=== PATIENT | male | born 1990 | race Caucasian/White ===

== ENCOUNTER 2019-06-12 21:35 | Emergency (ER) | payer OTHER ==
[2019-06-12 21:41] VITALS: TEMP 97.3
[2019-06-12] MEDS ORDERED: LIDOCAINE 1% INJ 10MG/ML (20 ML MDV) SQ ONE (22:00)
[2019-06-12] MEDS ORDERED: DIPH,PERTUS(ACELL)TETVAC-LF 0.5 ML VIAL IM ONE (22:01)
[2019-06-12] MEDS ORDERED: CEPHALEXIN 500 MG CAP PO STA (22:01)
--- NOTE | 2019-06-12 22:33 | XR ---
EXAMINATION TYPE: XR hand limited LT DATE OF EXAM: 06/12/2019 COMPARISON: NONE HISTORY: Pain TECHNIQUE: 2 views FINDINGS: I see no acute fracture nor dislocation. Joint spaces are normal. Metacarpals are intact. T here is 1 mm metallic density at the soft tissues of the base of the index finger on the lateral aspe ct. IMPRESSION: Small metallic foreign body. No fracture seen.
--- NOTE | 2019-06-12 23:24 | ED ---
Wound/Laceration HPI - General Chief Complaint: Wound/Laceration Stated Complaint: L Hand Lac Time Seen by Provider: 06/12/19 21:47 Source: patient Mode of arrival: ambulatory Limitations: no limitations - History of Present Illness Initial Comments: Patient is a 28-year-old male presenting to emergency Department with complaints of a laceration to his left hand just happened prior to arrival. Patient states he was using a cutting wheel when it slipped hitting him on the dorsal aspect of his left hand. Patient denies being on blood thinners. Bleeding is controlled at this time with a bandage. Patient states he is not sure of his last tetanus but believes is been more than 5 years. He has no other complaints at this time. Upon arrival to ER, his vital signs are stable. - Related Data Previous Rx's Medication Instructions Recorded Cephalexin [Keflex] 500 mg PO BID 3 Days #6 cap 06/12/19 Allergies Allergy/AdvReac Type Severity Reaction Status Date / Time No Known Allergies Allergy Verified 06/12/19 21:41 Review of Systems ROS Statement: Those systems with pertinent positive or pertinent negative responses have been documented in the HPI. ROS Other: All systems not noted in ROS Statement are negative. Past Medical History Past Medical History: No Reported History History of Any Multi-Drug Resistant Organisms: None Reported Past Surgical History: No Surgical Hx Reported Past Psychological History: Depression Smoking Status: Never smoker Past Alcohol Use History: Occasional Past Drug Use History: None Reported General Exam - General Exam Comments Initial Comments: GENERAL: Well-appearing, well-nourished and in no acute distress. HEAD: Atraumatic, normocephalic. EYES: Pupils equal round and reactive to light, extraocular movements intact, sclera anicteric, conjunctiva are normal. ENT: Moist mucous membranes. NECK: Normal range of motion, supple without lymphadenopathy or JVD. LUNGS: Breath sounds clear to auscultation bilaterally and equal. No wheezes rales or rhonchi. HEART: Regular rate and rhythm without murmurs, rubs or gallops. ABDOMEN: Soft, nontender, normoactive bowel sounds. No guarding, no rebound. No masses appreciated. EXTREMITIES: Patient has full range of motion of his left hand and wrist. He has full extension of all fingers as well as full flexion. There is some mild swelling to the area. No foreign body noticed. He is neurovascular intact. NEUROLOGICAL: Normal speech, normal gait. SKIN: Warm, Dry, normal turgor, no rashes. Patient has a 5 cm laceration to the dorsal aspect of his left hand, over his second metacarpal. There is mild bleeding at this time. Well-controlled. No foreign body seen. Limitations: no limitations Course Vital Signs 06/12/19 21:38 Temperature 97.3 F L Pulse Rate 59 L Respiratory 18 Rate Blood Pressure 133/87 O2 Sat by Pulse 98 Oximetry Procedures - Laceration Laceration #1 Consent Obtained: verbal consent Indication: laceration Site: hand (Left hand, dorsal aspect) Size (cm): 5 Description: linear Depth: simple, single layer Anesthetic Used: lidocaine 1% Anesthesia Technique: local infiltration Amount (mls): 5 Pre-repair: irrigated extensively Type of Sutures: nylon, vicryl Size of Sutures: 4-0 Number of Sutures: 10 (1 Vicryl internal suture, 9 nylon external sutures for a total of 10 sutures) Technique: simple, interrupted Patient Tolerated Procedure: well Medical Decision Making - Medical Decision Making Patient is a 28-year-old male presenting with a 5 cm laceration on dorsal aspect of his left hand. Bleeding is controlled at this time. X-rays show no acute fractures or foreign bodies around the wound. Patient's wound was irrigated with 1 L of sterile water, closed with 1 Vicryl internal suture, 9 nylon external sutures for a total of 10 sutures. Patient tolerated the procedure very well. Topical antibiotic as well as a bandage was applied. I discussed with patient to apply an [employer] bandage swelling begins. Patient also started on Keflex and given first dose in the ER. Patient's tetanus vaccine was also updated today. He is stable for discharge. He will have sutures removed in 7- 10 days. Given a orthopedic referral. He is in agreement with this plan of care. Return parameters were discussed with the patient he verbalizes understa nding. Case discussed with Dr. Oneal. Disposition Clinical Impression: Laceration of left hand Disposition: HOME SELF-CARE Condition: Stable Instructions (If sedation given, give patient instructions): Care For Your Stitches (ED) Additional Instructions: Please return to the Emergency Department if symptoms worsen or any other concerns. Complete antibiotics as prescribed. Apply pressure to the wound if there is increase in swelling. Tetanus vaccine was updated today. Stitches need to be removed in 7-10 days. Follow-up with orthopedics as discussed. Prescriptions: Cephalexin [Keflex] 500 mg PO BID 3 Days #6 cap Is patient prescribed a controlled substance at d/c from ED?: No Referrals: Yifan Pastrana, DO [Primary Care Provider] - 1-2 days Umesh Whelan, PAC [PHYSICIAN QUALITY ASSURANCE TECHNICIAN] - 1-2 days
[2019-06-12 23:41] VITALS: BP 121/71; PULSE 67; RESP 15
== END 2019-06-12 23:46 | disposition home or self-care (01) ==
LOC: EC 21:35
DX: S61.412A Laceration without foreign body of left hand, initial encounter (principal); Z23 Encounter for immunization; W27.8XXA Contact with other nonpowered hand tool, initial encounter; Y93.89 Activity, other specified; Y92.009 Unspecified place in unspecified non-institutional (private) residence as the place of occurrence of the external cause; Y99.0 Civilian activity done for income or pay
CPT/HCPCS: 73120; 90715; 99283; 12002; 90471; J2001